=== PATIENT | female | born 1970 | race Two or more races ===

== ENCOUNTER 2021-03-26 23:13 | Emergency (ER) | payer SELFPAY ==
[~2021-03-26] VITALS: Ht 170.2 cm; Wt 75.0 kg
[2021-03-26 23:31] LABS: BASO # 0.1 x10^3/uL (0.0-0.2); BASO % 1 % (0-3); EOS # 0.1 x10^3/uL (0.0-0.7); EOS % 1 % (0-3); HEMATOCRIT 41.7 % (36.0-47.0); HEMOGLOBIN 14.3 g/dL (12.0-15.5); LYMPH % 24 % (24-48); MEAN CORPUSCULAR HEMOGLOBIN 31 pg (25-35); MEAN CORPUSCULAR HGB CONC 34 g/dL (31-37); MEAN CORPUSCULAR VOLUME 91 fL (79-100); MONO # 0.5 x10^3/uL (0.0-1.1); MONO % 6 % (0-9); NEUT # 5.7 x10^3/uL (1.8-7.7); NEUT % 69 % (31-73); PLATELET COUNT 299 x10^3/uL (140-400); RED CELL DISTRIBUTION WIDTH 13.6 % (11.5-14.5); WHITE BLOOD COUNT 8.3 x10^3/uL (4.0-11.0)
[2021-03-26 23:41] LABS: CALCIUM 8.7 mg/dL (8.5-10.1); GFR 58.9; POTASSIUM 3.6 mmol/L (3.5-5.1)
[2021-03-26 23:44] LABS: ETHANOL 104 mg/dL (0-10); SALIC 0.3 mg/dL (2.8-20.0)
[2021-03-26 23:45] LABS: ACETAMIN < 2 mcg/ml (10-30)
[2021-03-26 23:46] LABS: DIRECT BILIRUBIN 0.2 mg/dL (0.0-0.2); TOTAL BILIRUBIN 0.9 mg/dL (0.2-1.0); TOTAL PROTEIN 7.5 g/dL (6.4-8.2)
[2021-03-26 23:53] LABS: U PREG PATIENT NEGATIVE (NEG)
[2021-03-26 23:56] LABS: BARBITURATES NEG (NEG); BENZODIAZEPINES NEG (NEG); CANNABINOIDS NEG (NEG); COCAINE NEG (NEG); METHADONE NEG (NEG); OPIATES NEG (NEG); PHENCYCLIDINE NEG (NEG)
[2021-03-26 23:58] LABS: AMPHETAMINE/METHAMPHETAMINE NEG (NEG)
--- NOTE | 2021-03-27 00:46 | PHYS DOC ---
Past Medical History Additional Past Medical Histor: INSOMINIA (TAHIR ALVES MD) Past Surgical History: No Surgical History (TAHIR ALVES MD) Smoking Status: Former Smoker Alcohol Use: Heavy (TAHIR ALVES MD) Adult General Chief Complaint Chief Complaint: OVERDOSE HPI HPI The patient is a 51-year-old female with a history of hypertension, COPD not on home oxygen, daily benzodiazepine use and daily alcohol abuse. She presents for evaluation of an intentional overdose of benzodiazepines. She states that she had an argument with her significant other, felt very stressed and upset and took "a handful" of her home clonazepam. 2 hours later she took a second "handful" of her home clonazepam. She think she took 12 pills or so in total, along with multiple alcoholic drinks. Patient states she took the medication to sleep but tearfully tells me that she is not sure if she wanted to wake up or not. She denies any other self-harm ingestions or actions, denies any other drug use, denies homicidal ideation, is calm and cooperative and in no acute distress. She denies any medical complaints today. States she feels safe at home. Took the medication an hour or 2 ago and has not meaningfully sedated (perhaps an artifact of her quite heavy daily benzodiazepine and alcohol use). Patient called a police stenographer friend of hers who called an ambulance for her when she admitted what she had done. Patient reports a prior suicide attempt when she was 18 years old but nothing subsequent to that. (TAHIR ALVES MD) Review of Systems Review of Systems A 12 point review of systems was completed and was negative except where noted in HPI above. (TAHIR ALVES MD) Physical Exam Physical Exam Older female appearing nontoxic and in no acute distress. Head is normocephalic and atraumatic. Neck is supple and nontender. Oropharynx is moist. Lungs are clear to auscultation at all stations. There is a normal S1 and S2 without rubs or gallops and capillary refill is appropriate, less than 2 seconds globally. Abdomen is soft, nontender and nondistended. Skin is warm and dry without cyanosis, clubbing or edema. Psychiatrically, the patient demonstrates appropriate mood and affect and is alert. (TAHIR ALVES MD) Current Patient Data Vital Signs Vital Signs Date Time Temp Pulse Resp B/P (MAP) Pulse Ox O2 Delivery O2 Flow Rate FiO2 03/26/21 23:20 98.6 96 16 137/82 (100) 100 Room Air 98.6 (KANU MC MD) Lab Values Laboratory Tests Test 03/26/21 23:25 03/27/21 03:05 White Blood Count 8.3 x10^3/uL (4.0-11.0) Red Blood Count 4.60 x10^6/uL (3.50-5.40) Hemoglobin 14.3 g/dL (12.0-15.5) Hematocrit 41.7 % (36.0-47.0) Mean Corpuscular Volume 91 fL (79-100) Mean Corpuscular Hemoglobin 31 pg (25-35) Mean Corpuscular Hemoglobin Concent 34 g/dL (31-37) Red Cell Distribution Width 13.6 % (11.5-14.5) Platelet Count 299 x10^3/uL (140-400) Neutrophils (%) (Auto) 69 % (31-73) Lymphocytes (%) (Auto) 24 % (24-48) Monocytes (%) (Auto) 6 % (0-9) Eosinophils (%) (Auto) 1 % (0-3) Basophils (%) (Auto) 1 % (0-3) Neutrophils # (Auto) 5.7 x10^3/uL (1.8-7.7) Lymphocytes # (Auto) 2.0 x10^3/uL (1.0-4.8) Monocytes # (Auto) 0.5 x10^3/uL (0.0-1.1) Eosinophils # (Auto) 0.1 x10^3/uL (0.0-0.7) Basophils # (Auto) 0.1 x10^3/uL (0.0-0.2) Urine Test Negative (NEG) Sodium Level 140 mmol/L (136-145) Potassium Level 3.6 mmol/L (3.5-5.1) Chloride Level 102 mmol/L (98-107) Carbon Dioxide Level 27 mmol/L (21-32) Anion Gap 11 (6-14) Blood Urea Nitrogen 8 mg/dL (7-20) Creatinine 1.0 mg/dL (0.6-1.0) Estimated GFR (Cockcroft-Gault) 58.9 Glucose Level 93 mg/dL (70-99) Calcium Level 8.7 mg/dL (8.5-10.1) Total Bilirubin 0.9 mg/dL (0.2-1.0) Direct Bilirubin 0.2 mg/dL (0.0-0.2) Aspartate Amino Transferase (AST) 24 U/L (15-37) Alanine Aminotransferase (ALT) 35 U/L (14-59) Alkaline Phosphatase 54 U/L (46-116) Total Protein 7.5 g/dL (6.4-8.2) Albumin 4.0 g/dL (3.4-5.0) Salicylates Level 0.3 mg/dL (2.8-20.0) L Salicylate Last Dose Date Salicylate Last Dose Time Urine Opiates Screen Neg (NEG) Urine Methadone Screen Neg (NEG) Acetaminophen Level < 2 mcg/ml (10-30) L Acetaminophen Last Dose Date Acetaminophen Last Dose Time Urine Barbiturates Neg (NEG) Urine Phencyclidine Screen Neg (NEG) Urine Amphetamine/Methamphetamine Neg (NEG) Urine Benzodiazepines Screen Neg (NEG) Urine Cocaine Screen Neg (NEG) Urine Cannabinoids Screen Neg (NEG) Ethyl Alcohol Level 104 mg/dL (0-10) H Urine Ethyl Alcohol Pos (NEG) SARS-CoV-2 Antigen (Rapid) Negative (NEGATIVE) Laboratory Tests 03/26/21 23:25 Laboratory Tests 03/26/21 23:25 (KANU MC MD) EKG EKG Sinus rhythm, rate 90, no acute ST elevation or depression, MS 120, QRS 84, QTc 435, EP interpretation. Nonischemic tracing, intervals appropriate. [] (TAHIR ALVES MD) Radiology/Procedures Radiology/Procedures [] (TAHIR ALVES MD) Course & Med Decision Making Course & Med Decision Making Plan for labs, EKG, observation for 6 hours to clear the patient for psychiatric assessment and then psychiatric assessment for disposition. 0600: Patient has been observed uneventfully for multiple hours here in the emergency department, has not meaningfully sedated and is medically cleared. Awaiting psychiatric assessment at this time. ALEX to Dr. Mc pending psych eval and re-evaluation for disposition. (TAHIR ALVES MD) Course & Med Decision Making We see this patient in signout. Patient was evaluated by the psychiatric assessment pressure steamer tender, Ritchie arroyo. She is now denying any suicidal ideation or continuations for self-harm. States that she was recently started on SSRI with her family doctor and plans to follow-up with her family doctor as well as a telepsych visit. They went over safety plan, and he felt that she was safe for discharge. 0641 (KANU MC MD) Dragon Disclaimer Dragon Disclaimer This electronic medical record was generated, in whole or in part, using a voice recognition dictation system. (TAHIR ALVES MD) Departure Departure Impression: Primary Impression: Benzodiazepine abuse Disposition: 01 HOME / SELF CARE / HOMELESS Condition: STABLE Referrals: UNKNOWN PCP NAME (PCP) TAHIR ALVES MD Mar 27, 2021 00:46 KANU MC MD Mar 27, 2021 06:42
--- NOTE | 2021-03-27 03:49 | EKG ---
[facility] [address] [place] [id number] Test Date: 2021-03-26 Test Time: 23:41:57 Pat Name: ANGEL SCHULZ Department: Room: Gender: F Supervisor Power [employer]actor: : [id number] Requested By: TAHIR ALVES Order Number: [id number] Reading MD: Andreas Hobbs MD Measurements Intervals [place] Rate: 90 P: -44 NH: 120 QRS: 31 QRSD: 84 T: 7 QT: 352 QTc: 435 Interpretive Statements SINUS RHYTHM NON-SPECIFIC ST/T CHANGES Electronically Signed On 03-28-2021 20:40:58 PICKED EDGE SEWING MACHINE OPERATOR by Andreas Hobbs MD
[2021-03-27 06:16] VITALS: BP 117/64
--- NOTE | 2021-03-29 13:02 | NUR ---
IP: Informed pt of negative covid test. Pt verbalized understanding.
== END 2021-03-27 06:50 | disposition home or self-care (01) ==
LOC: ER 23:13
DX: F19.10 Other psychoactive substance abuse, uncomplicated (principal); Z20.822 Contact with and (suspected) exposure to COVID-19; I10 Essential (primary) hypertension; J44.9 Chronic obstructive pulmonary disease, unspecified; F10.20 Alcohol dependence, uncomplicated; Y90.5 Blood alcohol level of 100-119 mg/100 ml; Z87.891 Personal history of nicotine dependence
CPT/HCPCS: 36415; 80048; 80076; 80307; 80329; 81025; 85025; 87426; 93005; 99285; G0480; U0003; U0005